=== PATIENT | female | born 1955 | race Caucasian/White ===

== ENCOUNTER → 2020-10-09 | Outpatient (CLI) | payer MEDICARE ==
[~2020-10-09] MED LIST: TRAZ150T62 PO; VENL150C PO
[2020-10-09 12:28] LABS: MICROSCOPIC AUTO
[2020-10-09 12:31] LABS: BASOPHILS % (AUTO) 1 % (0-1); EOSINOPHILS % (AUTO) 1 % (1-7); LYMPHOCYTES % (AUTO) 29 % (22-44); MEAN CORPUSCULAR HEMOGLOBIN 30.7 pg (27.0-34.8); MEAN CORPUSCULAR HGB CONC 33.3 g/dL (32.4-35.8); MEAN PLATELET VOLUME 7.8 fL (7.4-10.4); MONOCYTES % (AUTO) 10 % (2-9); NEUTROPHILS % (AUTO) 59 % (42-75); PLATELET COUNT 362 x10^3/uL (130-400); RED BLOOD COUNT 4.16 x10^6/uL (3.82-5.3); RED CELL DISTRIBUTION WIDTH 13.8 % (9.6-15.2)
[2020-10-09 12:33] LABS: MD NO
[2020-10-09 12:35] LABS: ANION GAP 2 mmol/L (5-15); CHLORIDE 107 mmol/L (98-107); CREATININE 0.68 mg/dL (0.55-1.02)
[2020-10-09 12:49] LABS: INTERNATIONAL NORMALIZED RATIO 1.04 (0.93-1.1)
== END | disposition home or self-care (01) ==
LOC: STAR 10:54
PROVIDERS: ATTEND Urology
DX: Z01.818 Encounter for other preprocedural examination (principal); N20.1 Calculus of ureter; Z20.828 Contact with and (suspected) exposure to other viral communicable diseases
CPT/HCPCS: 80048; 81001; 85025; 85610; 87086; 87635; 93005

== ENCOUNTER 2020-10-15 12:28 | Day surgery (SDC) | payer MEDICARE, OTHER ==
[~2020-10-15] VITALS: Ht 157.5 cm; Wt 47.9 kg
[2020-10-15] MEDS ORDERED: CHLORHEXIDINE 15 ML UDC MM ONE (13:30)
[2020-10-15] MEDS ORDERED: LACTATED RINGERS 1,000 ML IV SCH (13:30)
[2020-10-15] MEDS ORDERED: FENTANYL PF 100 MCG/2ML ONE (17:14)
[2020-10-15] MEDS ORDERED: KETOROLAC 30 MG/1 ML ONE ×2 (17:16→17:48)
[2020-10-15] MEDS ORDERED: HYDROmorphone 1 MG/ML, 1ML INJ IVPush PRN (17:30)
[2020-10-15] MEDS ORDERED: FENTANYL PF 100 MCG/2ML IV PRN (17:30)
[2020-10-15] MEDS ORDERED: MEPERIDINE/PF 25MG/0.5ML IVPush PRN (17:30)
[2020-10-15] MEDS ORDERED: OXYcodone 5 MG/5 ML ORAL.SOL UDC PO PRN (17:30)
[2020-10-15] MEDS ORDERED: PROMETHAZINE 25 MG/ML, 1ML IVPush PRN (17:30)
[2020-10-15] MEDS ORDERED: hydrALAzine 20 MG/ML, 1ML IV PRN (17:30)
[2020-10-15] MEDS ORDERED: LABETALOL 5MG/ML, 20ML IV PRN (17:30)
[2020-10-15] MEDS ORDERED: DIPHENHYDRAMINE 50 MG/ML, 1ML IVPush PRN (17:30)
[2020-10-15] MEDS ORDERED: HYDROcodone/APAP 7.5-325MG/15ML UDC PO PRN (17:30)
[2020-10-15] MEDS ORDERED: HALOPERIDOL 5 MG/ML IV PRN (17:30)
[2020-10-15] MEDS ORDERED: OMNIPAQUE 350 MG/ML, 50 ML BOTTLE INJ ONE (17:40)
[2020-10-15] MEDS ORDERED: ONDANSETRON 2MG/ML, 2ML ONE (17:49)
[2020-10-15] MEDS ORDERED: CEFAZOLIN 1,000 MG ONE (17:49)
[2020-10-15] MEDS ORDERED: DEXAMETHASONE 4 MG/ML, 1ML ONE (17:49)
[2020-10-15] MEDS ORDERED: PROPOFOL 10 MG/ML, 20ML ONE (17:49)
[2020-10-15] MEDS ORDERED: OMNIPAQUE 350 MG/ML, 50 ML BOTTLE ONE (17:55)
[2020-10-15] MEDS ORDERED: PHENAZOPYRIDINE 200 MG TABLET PO ONE (18:30)
== END 2020-10-15 19:10 | disposition home or self-care (01) ==
LOC: OUT 12:28
PROVIDERS: ATTEND Urology
DX: N20.1 Calculus of ureter (principal); G47.00 Insomnia, unspecified; F41.9 Anxiety disorder, unspecified; Z79.899 Other long term (current) drug therapy; Z87.442 Personal history of urinary calculi; Z88.0 Allergy status to penicillin
CPT/HCPCS: 52353; 74420; 88300; J0690; J1100; J1885; J2405; J2704; J3010; J7120; Q9967